=== PATIENT | male | born 1985 | race Caucasian/White ===

== ENCOUNTER 2017-09-09 09:24 | Observation (INO) | payer OTHER ==
[2017-09-09] MEDS ORDERED: NS 1,000 ML IV ONE ×2 (09:49)
[2017-09-09] MEDS ORDERED: ONDANSETRON 4 MG/2 ML VIAL IVP ONE (09:51)
[2017-09-09] MEDS ORDERED: ACETAMINOPHEN 325 MG TAB PO ONE (09:51)
--- NOTE | 2017-09-09 09:51 | EDPHY ---
H & P Time Seen by Provider: 09/09/17 09:34 HPI/ROS: CHIEF COMPLAINT: Fever and sore throat HISTORY OF PRESENT ILLNESS: Patient is HIV positive but had a negative viral load in July and tells me his CD4 count at that time was in the mid 500s. No recent foreign travel and no recent IV drug abuse. No recent dental work. He describes having cough and cold symptoms for 3 weeks with phlegm and sinus pressure. This past weekend on Friday 2 days ago developed sore throat and diffuse myalgias and headaches and pain on swallowing. He went to [facility] today and had a negative strep test and a negative influenza. He presents with sore throat which is moderate and worse with swallowing, worse on the right does not radiate. Duration as above. REVIEW OF SYSTEMS: Eye: no change in vision ENT: HPI Cardiac: no chest pain or syncope Pulmonary: HPI Abdomen: no vomiting, diarrhea, abdominal pain, does have some nausea Musculoskeletal: Diffuse myalgias in all joints neck and back. Skin: no rash Neuro: Mild headache Constitutional: Fever and chills : no urinary symptoms A comprehensive 10 point review of systems is otherwise negative aside from elements mentioned in the history of present illness. PAST MEDICAL HISTORY: HIV as above Social history: No travel out of the country and no IV drug abuse, no recent dental work General Appearance: Alert and conversant, cooperative. Eyes: No scleral icterus. ENT, Mouth: Patient has tonsillar swelling and exudate. Uvula is midline. No stridor or drooling. No trismus. No gum swelling. Normal tympanic membranes. Respiratory: Normal respiratory effort, breath sounds equal, lungs are clear to auscultation. Cardiovascular: Regular rate and rhythm. No murmur. Gastrointestinal: Abdomen is soft and non tender. Neurological: Alert and oriented x3. Normally conversant. Face symmetric, normal movement and sensation in all extremities. Skin: Warm and dry, no rashes. No petechiae or purpura. Musculoskeletal: Full range of motion of the neck, no meningeal signs. Psychiatric: Not agitated. Emergency Department course/MDM: Zofran 4 mg IV. IV normal saline 2 L and oral acetaminophen for fever. Chest x -ray for cough. 1038: Chest x-ray personally interpreted shows no pneumonia. 1052: Discussed with Pujet, Unasyn and Toradol and dexamethasone. At this point I think it is unlikely he has epiglottitis or deep space neck infection or retropharyngeal abscess. Smoking Status: Former smoker Constitutional: Initial Vital Signs Temperature (C) 39.3 C H 09/09/17 09:27 Heart Rate 132 H 09/09/17 09:27 Respiratory Rate 16 09/09/17 09:27 Blood Pressure 114/73 09/09/17 09:27 O2 Sat (%) 97 09/09/17 09:27 Allergies/Adverse Reactions: cefaclor [From Ceclor] Allergy (Verified 09/09/17 12:00) Hives Sulfa (Sulfonamide Antibiotics) Allergy (Verified 09/09/17 12:00) Hives Home Medications: Medication Instructions Recorded Elviteg/Jumana/Emtric/Tenofo Ala 1 each PO DAILY 09/09/17 [Genvoya Tablet] Ibuprofen [Motrin (*)] 400 - 600 mg PO DAILY PRN 09/09/17 Medical Decision Making - Diagnostics Imaging Results: Imaging Impressions Chest X-Ray 09/09/17 09:49 Impression:1. No pneumonia. Suspect airways disease. 2. Doubt pneumopericardium. Dr. Wallace is in agreement. Results discussed with Dr. Jenkins. Differential Diagnosis: Differential includes but not limited to RPA, epiglottitis, tonsillitis, strep, mono, Omer's. Consult/Admit Bed Type: [facility] for [facility] 1111 - Data Points Laboratory Results: Laboratory Results 09/09/17 10:10 09/09/17 10:10 09/09/17 09/09/17 09/09/17 10:10 10:10 10:10 WBC 16.06 10^3/uL H 10^3/uL (3.80-9.50) RBC 4.65 10^6/uL 10^6/uL (4.40-6.38) Hgb 16.1 g/dL g/dL (13.7-17.5) Hct 44.3 % % (40.0-51.0) MCV 95.3 fL fL (81.5-99.8) MCH 34.6 pg H pg (27.9-34.1) MCHC 36.3 g/dL g/dL (32.4-36.7) RDW 11.7 % % (11.5-15.2) Plt Count 191 10^3/uL 10^3/uL (150-400) MPV 10.1 fL fL (8.7-11.7) Neut % (Auto) 86.4 % H % (39.3-74.2) Lymph % (Auto) 6.1 % L % (15.0-45.0) [place] % (Auto) 6.7 % % (4.5-13.0) Eos % (Auto) 0.0 % L % (0.6-7.6) Baso % (Auto) 0.2 % L % (0.3-1.7) Nucleat RBC Rel Count 0.0 % % (0.0-0.2) Absolute Neuts (auto) 13.88 10^3/uL H 10^3/uL (1.70-6.50) Absolute Lymphs (auto) 0.98 10^3/uL L 10^3/uL (1.00-3.00) Absolute Monos (auto) 1.07 10^3/uL H 10^3/uL (0.30-0.80) Absolute Eos (auto) 0.00 10^3/uL L 10^3/uL (0.03-0.40) Absolute Basos (auto) 0.04 10^3/uL 10^3/uL (0.02-0.10) Absolute Nucleated RBC 0.00 10^3/uL 10^3/uL (0-0.01) Immature Gran % 0.6 % % (0.0-1.1) Immature Gran # 0.09 10^3/uL 10^3/uL (0.00-0.10) PT 14.1 SEC SEC (12.0-15.0) INR 1.10 (0.83-1.16) APTT 28.9 SEC SEC (23.0-38.0) VBG Lactic Acid 0.9 mmol/L mmol/L (0.7-2.1) Sodium Potassium Chloride Carbon Dioxide Anion Gap BUN Creatinine Estimated GFR Glucose Calcium Total Bilirubin 09/09/17 10:10 WBC RBC Hgb Hct MCV MCH MCHC RDW Plt Count MPV Neut % (Auto) Lymph % (Auto) [place] % (Auto) Eos % (Auto) Baso % (Auto) Nucleat RBC Rel Count Absolute Neuts (auto) Absolute Lymphs (auto) Absolute Monos (auto) Absolute Eos (auto) Absolute Basos (auto) Absolute Nucleated RBC Immature Gran % Immature Gran # PT INR APTT VBG Lactic Acid Sodium 138 mEq/L mEq/L (134-144) Potassium 4.0 mEq/L mEq/L (3.5-5.2) Chloride 99 mEq/L mEq/L (97-110) Carbon Dioxide 23 mEq/l mEq/l (22-31) Anion Gap 16 mEq/L mEq/L (8-16) BUN 13 mg/dL mg/dL (7-23) Creatinine 0.8 mg/dL mg/dL (0.7-1.3) Estimated GFR > 60 Glucose 103 mg/dL H mg/dL (70-100) Calcium 9.4 mg/dL mg/dL (8.5-10.4) Total Bilirubin 1.1 mg/dL mg/dL (0.1-1.4) Medications Given: Acetaminophen (Tylenol 650/20.3ml Oral Liquid) 650 mg PO Q4HRS PRN PRN Reason: Pain, Mild/Fever, Can Take PO Stop: 03/08/18 12:24 Last Admin: 09/09/17 13:59 Dose: 650 mg Dextrose/Sodium Chloride (D5w 1/2 Ns) 1,000 mls @ 125 mls/hr IV CONT TRINA Stop: 03/08/18 12:29 Last Admin: 09/09/17 13:30 Dose: 1,000 mls Discontinued Medications Acetaminophen (Tylenol) 650 mg PO EDNOW ONE Stop: 09/09/17 09:52 Last Admin: 09/09/17 13:00 Dose: Not Given Dexamethasone (Decadron Injection) 10 mg IVP EDNOW ONE Stop: 09/09/17 10:56 Last Admin: 09/09/17 11:08 Dose: 10 mg Sodium Chloride (Ns) 1,000 mls @ 0 mls/hr IV EDNOW ONE; Wide Open PRN Reason: Protocol Stop: 09/09/17 09:50 Last Admin: 09/09/17 10:55 Dose: 1,000 mls Sodium Chloride (Ns) 1,000 mls @ 0 mls/hr IV EDNOW ONE; Wide Open PRN Reason: Protocol Stop: 09/09/17 09:50 Last Admin: 09/09/17 10:32 Dose: 1,000 mls Ampicillin Sodium/Sulbactam (Sodium 3 gm/ Sodium Chloride) 100 mls @ 200 mls/ hr IV EDNOW ONE PRN Reason: Protocol Stop: 09/09/17 11:17 Last Admin: 09/09/17 11:51 Dose: 100 mls Ketorolac Tromethamine (Toradol) 30 mg IVP EDNOW ONE Stop: 09/09/17 10:46 Last Admin: 09/09/17 10:55 Dose: 30 mg Ondansetron HCl (Zofran) 4 mg IVP EDNOW ONE Stop: 09/09/17 09:52 Last Admin: 09/09/17 10:31 Dose: 4 mg Departure - Departure Disposition: [facility] In[facility] Acute Clinical Impression: Acute pharyngitis Qualifiers: Pharyngitis/tonsillitis etiology: unspecified etiology Qualified Code(s): J02.9 - Acute pharyngitis, unspecified Condition: Good
[2017-09-09 10:22] LABS: PLATELET COUNT 191 10^3/uL (150-400)
[2017-09-09 10:30] LABS: INR 1.1 (0.83-1.16); PROTIME(PATIENT) 14.1 SEC (12.0-15.0)
[2017-09-09] MEDS ORDERED: KETOROLAC 30 MG/1 ML SDV IVP ONE (10:45)
[2017-09-09] MEDS ORDERED: AMPICILLIN/SULBACTAM 3 GM in NS 100 ML IV ONE (10:48)
[2017-09-09] MEDS ORDERED: DEXAMETHASONE 10 MG/ML VIAL IVP ONE (10:55)
[2017-09-09] MEDS ORDERED: HYDROmorphone HCL/NS/PF 0.4 MG/2 ML SYR IVP PRN (12:25)
[2017-09-09] MEDS ORDERED: ONDANSETRON DISINTEGRATING 4 MG TAB PO PRN (12:25)
[2017-09-09] MEDS ORDERED: ACETAMINOPHEN 325 MG TAB PO PRN (12:25)
[2017-09-09] MEDS ORDERED: ONDANSETRON 4 MG/2 ML VIAL IVP PRN (12:25)
--- NOTE | 2017-09-09 13:09 | PCMIDPN ---
Assessment/Plan: 1. Acute pharyngitis accompanied by fevers and body aches: Suspect bacterial etiology such as Group A, C, or G strep. Fusobacterium is also in the differential diagnosis. Patient had mononucleosis as a child. Doubt gonococcal pharyngitis given lack of exposure in the fact that it is usually not present with this severity. Thankfully, patient is much better compared with this morning. Agree that complications such as peritonsillar abscess or other seems less likely at this point in time given clinical exam. I do not feel that he needs a neck CT for additional imaging. Continue Unasyn intravenously 3 g IV q.6 hours, with plans to transition to Augmentin 875 p.o. twice daily to complete 10 days. Hopefully he can go home in the morning if he continues to do well. 2. HIV: Well controlled on Genvoya, which he will continue. Patient is now able to tolerate p.o.'s. This medication needs to be taken with at least a 300 calorie meal, and the patient is aware of this. Subjective: Patient is well known to me. He is under my care for treatment of HIV. Patient 's last laboratories were in July that showed a T-cell count of 532 and a viral load of 30, on Genvoya. He tells me that a everyone at work has been ill , and he developed symptoms consistent with an upper respiratory infection for happy 2-3 weeks ago that have persisted. He started to feel better, but then developed a severe sore throat 2 days ago, with myalgias and tactile fevers. Patient states that he was unable to sleep last night so presented to [facility] urgent care this morning, where a rapid flu swab and strep test were negative. Because the patient had a heart rate in the 130s he was referred to [facility] for further evaluation treatment. In our emergency room, the patient was febrile to 39.3 and tachycardic but nontoxic- appearing. He was given a dose of Unasyn and Decadron and was admitted for further evaluation and treatment based on his vital signs and elevated white blood cell count. Speaking with the patient now, he tells me that he feels markedly better compared to this morning. He is hungry and would like to eat. He just took his antiretrovirals. He denies headache, photophobia, nausea or vomiting. His throat is still quite sore. Mild persistent residual cough, but no shortness of breath and the cough is nonproductive. He does have some body aches. No chest pain no abdominal pain diarrhea rash or other. He does have some swollen neck lymph nodes on the right side. He has not been dysphonic, or had excessive salivation. Objective: Vital Signs Temp Pulse Resp BP Pulse Ox 37.3 C 104 H 18 123/70 H 95 09/09/17 12:31 09/09/17 12:31 09/09/17 12:31 09/09/17 12:31 09/09/17 12:31 09/08/17 09/09/17 09/10/17 05:59 05:59 05:59 Intake Total 2300 Balance 2300 - Physical Exam General Appearance: alert, no apparent distress, thin EENT: other (Minimal posterior or pharyngeal erythema. Some white patches imbedded in his tonsils bilaterally. Tonsils are symmetric and not particularly enlarged. No obvious evidence of peritonsillar abscess. Patient is not hoarse. There is some right-sided anterior cervical lymphadenopathy which is tender. Neck is supple.) Respiratory: lungs clear Cardiac/Chest: regular rate, rhythm, No systolic murmur Abdomen: non-tender, soft Skin: No rash Neuro/Psych: no motor/sensory deficits, oriented x 3 ICD10 Worksheet Patient Problems: Problems Problem Status Onset Acute pharyngitis Acute
[2017-09-09] MEDS: D5W 1/2 NS 1,000 ML IV SCH ×2 (13:30→20:56)
[2017-09-09] MEDS ORDERED: IBUPROFEN 200 MG TAB PO PRN (13:58)
[2017-09-09] MEDS: ACETAMINOPHEN 650 MG/20.3 ML UDCUP PO PRN ×3 (13:59→23:28)
--- NOTE | 2017-09-09 14:45 | GHP ---
[f rep st] HISTORY AND PHYSICAL DATE OF ADMISSION: 09/09/2017 CHIEF COMPLAINT: Throat pain. HISTORY OF PRESENT ILLNESS: The patient is a 31-year-old male who has had cold- like symptoms for the last 3 weeks. He presented today to [facility] with complaints of ongoing fever as well as neck and throat pain for the last 2 days. He said that his throat has had severe soreness for 2 days as well as some malaise and fevers. He states that he was unable to sleep last night and presented to the [facility] this morning. He did have a rapid flu swab there and strep test that were both negative. The patient was sent to the emergency room for further evaluation, given the fact that his tachycardia was in the 130s. He did have a noted fever of 39.3. Upon my examination, the patient's as he feels significantly better. He is able to swallow and able to intake orals. He did receive a dose of Decadron as well as Unasyn in the emergency room. He denies any nausea, vomiting, or diarrhea. He does state that he has a mild persistent cough as well as some generalized body aches. He denies any shortness of breath. He denies any chest pain, or abdominal pain. He has no rashes or lesions. REVIEW OF SYSTEMS: A comprehensive 10-point review of systems is negative, other than noted in the HPI. PAST MEDICAL HISTORY: Notable for HIV. SOCIAL HISTORY: The patient has not had any recent travel. He does not use any IV drugs or alcohol. PHYSICAL EXAM: VITAL SIGNS: Temperature 39.3 with a heart rate of 132, respiratory rate is 16, blood pressure is 114/73, saturating 97% on room air. GENERAL: The patient is alert, conversant, cooperative. HEENT: Normocephalic, atraumatic. There is tonsillar swelling with exudate. There is no stridor or drooling. Uvula is within normal limits. RESPIRATORY: Lungs are clear to auscultation bilaterally. No rhonchi or wheezes noted. CARDIOVASCULAR: Regular rhythm. Tachycardic rate. No murmur or gallop appreciated. GASTROINTESTINAL/ABDOMEN: Bowel sounds are positive. Soft and nontender. GASTROINTESTINAL/ABDOMEN: Bowel sounds are positive. Soft and nontender. There is no guarding or rigidity noted. NEUROLOGICAL: The patient is alert and oriented. He is focally intact. SKIN: Warm and dry. No rashes or lesions appreciated. EXTREMITIES: Within normal limits. There is no clubbing or cyanosis noted. ALLERGIES: Cefaclor as well sulfa. HOME MEDICATIONS: Genvoya. IMAGING: Chest x-ray shows no pneumonia. LABORATORY EVALUATION: White count is 16. ASSESSMENT AND PLAN: The patient is a 31-year-old male presenting to the emergency room with tachycardia and fever. He was evaluated and diagnosed with: 1. Acute pharyngitis with fever and body aches. I have reviewed the patient's care with Dr. Lillian Gonzales, his primary infectious disease provider. We will continue the patient on Unasyn. His symptoms are significantly improving. He did receive a dose of Decadron during the emergency room visit, which will not be continued at this time. He will transition to oral Augmentin 875 mg p.o. b.i.d. to complete a 10-day course if he is continuing to improve and he is able to intake oral and stay hydrated. 2. History of human immunodeficiency virus. He has been continued on his previously prescribed Genvoya. He will continue taking his medication with meals as previously ordered. 3. Disposition: The patient will be admitted to observation status. Anticipate he will be able to discharge from the hospital within 24 hours. We will continue to monitor his laboratory evaluations here as well as supportive care. I have reviewed the patient's care with Dr. Lillian Gonzales who is in agreement with this plan. /[id number]/MODL MTDD
[2017-09-09] MEDS: [UNRECOGNIZED DRUG - OTHER] PO SCH (15:40)
[2017-09-09] MEDS: AMPICILLIN/SULBACTAM 3 GM in NS 100 ML IV SCH ×2 (18:12→23:26)
[2017-09-10] MEDS: AMPICILLIN/SULBACTAM 3 GM in NS 100 ML IV SCH ×4 (05:14→23:15)
[2017-09-10] MEDS: D5W 1/2 NS 1,000 ML IV SCH ×2 (05:16→23:14)
[2017-09-10] MEDS: ACETAMINOPHEN 650 MG/20.3 ML UDCUP PO PRN ×2 (05:23→14:29)
[2017-09-10] MEDS: [UNRECOGNIZED DRUG - OTHER] PO SCH (08:52)
--- NOTE | 2017-09-10 10:58 | ASMTCMCOM ---
CM Note CM Note Notes: Pt admitted with pharyngitis. Anticipate pt will have no DC needs. Date Signed: 09/10/2017 10:57 AM Electronically Signed By:Regine Victoria LCSW
--- NOTE | 2017-09-10 10:58 | ASMTCMCOM ---
CM Note CM Note Notes: Pt admitted with pharyngitis. Anticipate pt will have no DC needs. Date Signed: 09/10/2017 10:57 AM Electronically Signed By:Regine Victoria LCSW
--- NOTE | 2017-09-10 10:58 | ASMTCMCOM ---
CM Note CM Note Notes: Pt admitted with pharyngitis. Anticipate pt will have no DC needs. Date Signed: 09/10/2017 10:57 AM Electronically Signed By:Regine Victoria LCSW
--- NOTE | 2017-09-10 16:38 | HOSPPROG ---
Hospitalist Progress Note Assessment/Plan: 31 yo M with HIV presenting with acute pharyngitis # acute pharyngitis: with throat cultures so far showing mixed tejas, started on unasyn with some improvement but still having pain and difficulty eating. ID has evaluated as well, and recommend unasyn with transition to augmentin. No reason to pursue CT imaging at this time given that he is so stable. No steroids indicated and would prefer to avoid. # HIV: has been stable and continued on current meds # sepsis: 2/2 acute pharyngitis, has been afebrile, vital signs wnl, wbc trending down # dispo: likely dc in am Patient new to my care. Care plan reviewed with ID. Subjective: no significant overnight events, patient feeling a bit better, throat still hurts, still hurts to swallow, no fevers overnight but has been having soaking sweats overnight Objective: Vital Signs Temp Pulse Resp BP Pulse Ox 36.7 C 79 18 115/70 95 09/10/17 15:11 09/10/17 15:11 09/10/17 15:11 09/10/17 15:11 09/10/17 15:11 Microbiology 09/09/17 13:20 Gram Stain - Final Throat - Swab 09/09/17 13:20 Respiratory Panel (PCR) - Final Nasal, Sinus - Swab No Organism Detected Laboratory Results 09/10/17 05:12 09/09/17 09/10/17 09/11/17 05:59 05:59 05:59 Intake Total 6571 Output Total 1650 0 Balance 4921 -205 PT 14.1 SEC (12.0-15.0) 09/09/17 10:10 INR 1.10 (0.83-1.16) 09/09/17 10:10 awake alert nad anicteric, posterior pharynx erythematous without exudate, no stridor op clear rrr no mrg cta b soft nt nd no cce warm dry well perfused oriented appropriate ICD10 Worksheet Patient Problems: Problems Problem Status Onset Acute pharyngitis Acute
[2017-09-11] MEDS: AMPICILLIN/SULBACTAM 3 GM in NS 100 ML IV SCH (05:23)
[2017-09-11 05:30] LABS: PLATELET COUNT 178 10^3/uL (150-400)
[2017-09-11] MEDS: [UNRECOGNIZED DRUG - OTHER] PO SCH (07:35)
[2017-09-11 08:47] VITALS: BP 121/76; PULSE 80; RESP 21; TEMP 98; O2SAT 95
--- NOTE | 2017-09-11 10:28 | PDDCSUM ---
Discharge Summary Discharge Summary: Dates of service 09/09-09/11/17 Consultations: ID Procedures none Hospital course by problem # acute pharyngitis: with throat cultures showing only mixed oral tejas, started on unasyn and significantly improved. Treated with 2 days of unasyn, not given steroids and no CT performed given rapid improvement and lack of issues with swallowing etc. Will complete a total 10 day course with augmentin and have patient f/u as scheduled with ID # HIV: has been stable and continued on current meds # sepsis: 2/2 acute pharyngitis, resolved other than continued elevated wbc Dc home f/u with ID as scheduled, sooner if current sxs fail to completely resolve > 35 min spent in dc of patient, more than half in coordination of care
--- NOTE | 2017-09-11 11:35 | ASDISCHSUM ---
Discharge Information Plan Status:Home with No Needs Medically Cleared to Leave: Discharge Date:09/11/2017 11:23 AM CM D/C Disposition: ADT D/C Disposition:Home, Routine, Self-Care Projected Discharge Date:09/11/2017 11:23 AM Transportation at D/C: Discharge Delay Reason: Follow-Up Date:09/11/2017 11:23 AM Discharge Slot: Final Diagnosis: Placement Information Patient Contact Information Contact Name:SAGE DICKINSON Relationship:Father Address:[address] City:[place] Alternate Phone: [facility]/Zip Code:[place] [address] Email: Financial Information Financial Class:HMO and PPO Plans Primary Plan Desc:[employer] Primary Plan Number:[id number] Secondary Plan Desc: Secondary Plan Number: Assessment Information [facility] CM Progress Note CM Note CM Note Notes: Pt admitted with pharyngitis. Anticipate pt will have no DC needs. Date Signed: 09/10/2017 10:57 AM Electronically Signed By:Regine Victoria LCSW Intervention Information
--- NOTE | 2017-09-11 11:35 | ASDISCHSUM ---
Discharge Information Plan Status:Home with No Needs Medically Cleared to Leave: Discharge Date:09/11/2017 11:23 AM CM D/C Disposition: ADT D/C Disposition:Home, Routine, Self-Care Projected Discharge Date:09/11/2017 11:23 AM Transportation at D/C: Discharge Delay Reason: Follow-Up Date:09/11/2017 11:23 AM Discharge Slot: Final Diagnosis: Placement Information Patient Contact Information Contact Name:SAGE DICKINSON Relationship:Father Address:[address] City:[place] Alternate Phone: [facility]/Zip Code:[place] [address] Email: Financial Information Financial Class:HMO and PPO Plans Primary Plan Desc:[employer] Primary Plan Number:[id number] Secondary Plan Desc: Secondary Plan Number: Assessment Information [facility] CM Progress Note CM Note CM Note Notes: Pt admitted with pharyngitis. Anticipate pt will have no DC needs. Date Signed: 09/10/2017 10:57 AM Electronically Signed By:eRgine Victoria LCSW Intervention Information
--- NOTE | 2017-09-11 11:35 | ASDISCHSUM ---
Discharge Information Plan Status:Home with No Needs Medically Cleared to Leave: Discharge Date:09/11/2017 11:23 AM CM D/C Disposition: ADT D/C Disposition:Home, Routine, Self-Care Projected Discharge Date:09/11/2017 11:23 AM Transportation at D/C: Discharge Delay Reason: Follow-Up Date:09/11/2017 11:23 AM Discharge Slot: Final Diagnosis: Placement Information Patient Contact Information Contact Name:SAGE DICKINSON Relationship:Father Address:[address] City:[place] Alternate Phone: [facility]/Zip Code:[place] [address] Email: Financial Information Financial Class:HMO and PPO Plans Primary Plan Desc:[employer] Primary Plan Number:[id number] Secondary Plan Desc: Secondary Plan Number: Assessment Information [facility] CM Progress Note CM Note CM Note Notes: Pt admitted with pharyngitis. Anticipate pt will have no DC needs. Date Signed: 09/10/2017 10:57 AM Electronically Signed By:Regine Victoria LCSW Intervention Information
== END 2017-09-11 11:23 | disposition home or self-care (01) ==
LOC: F1N 12:24
PROVIDERS: ADMIT Hospitalist; ATTEND Internal Medicine
PROC: 3E0337Z Introduction of Electrolytic and Water Balance Substance into Peripheral Vein, Percutaneous Approach (ICD-10-PCS; principal; 2017-09-09)
PROC: 3E03029 Introduction of Other Anti-infective into Peripheral Vein, Open Approach (ICD-10-PCS; 2017-09-09)
DX: A41.9 Sepsis, unspecified organism (principal); J02.9 Acute pharyngitis, unspecified; Z21 Asymptomatic human immunodeficiency virus [HIV] infection status
CPT/HCPCS: 71020; 96361; 96365; 96375; 99285; G0378; J0295; J1100; J1885; J2405

== ENCOUNTER → 2018-11-17 | Emergency (ER) | payer OTHER | END | disposition left against medical advice (07) | DX: Z53.21 Procedure and treatment not carried out due to patient leaving prior to being seen by health care provider (principal) ==

== ENCOUNTER 2019-01-12 15:02 | Emergency (ER) | payer OTHER ==
[2019-01-12] MEDS ORDERED: IPRATROPIUM/ALBUTEROL 3 ML DEYVIAL ONE (15:28)
[2019-01-12] MEDS ORDERED: IPRATROPIUM/ALBUTEROL 3 ML DEYVIAL IH ONE (15:28)
--- NOTE | 2019-01-12 15:30 | EDPHY ---
H & P Time Seen by Provider: 01/12/19 15:10 HPI/ROS: Chief complaint. Difficulty breathing HPI. Patient is a 33-year-old male HIV positive who presents with cough for 2- 3 weeks. The cough is productive clear sputum especially in the morning. He has some did chest tightness across the front of his chest. For the past 2 days he has had slight shortness of breath in that he feels that he cannot take a full deep breath. However he does not have dyspnea on exertion. He has some runny nose and congestion that he describes as mild. Denies sore throat or sore ears. He has not had a fever. No recent travel with some exposure to Infectious Disease at work. No history of asthma. The patient does not smoke however he vapes. ROS 10 systems were reviewed and negative with the exception of the elements mentioned in the history of present illness Past Medical/Surgical History: HIV positive Social History: Single, nonsmoker, no alcohol Smoking Status: Former smoker Physical Exam: General Appearance: Alert well-developed male mild distress vital signs are stable. Afebrile. O2 saturation 96% on room air Eyes: Pupils equal and round no pallor or injection. ENT, pharynx slightly injected without exudate Respiratory: No retractions. Mild inspiratory expiratory rhonchi. No rales or wheezes are noted Cardiovascular: Regular rate and rhythm. Gastrointestinal: Abdomen is soft and nontender, no masses, bowel sounds normal. Neurological: Awake and alert, sensory and motor exams grossly normal. Skin: Warm and dry, no rashes. Musculoskeletal: Neck is supple nontender. Extremities symmetrical, full range of motion. Psychiatric: Patient is oriented X 3, there is no agitation. Constitutional: Initial Vital Signs Temperature (C) 36.9 C 01/12/19 15:06 Heart Rate 83 01/12/19 15:06 Respiratory Rate 16 01/12/19 15:06 Blood Pressure 129/89 H 01/12/19 15:06 O2 Sat (%) 96 01/12/19 15:06 O2 Delivery Mode Room Air Allergies/Adverse Reactions: cefaclor [From Ceclor] Allergy (Verified 01/12/19 15:12) Pt reports Hives as infant Sulfa (Sulfonamide Antibiotics) Allergy (Verified 01/12/19 15:12) Pt reports Hives as infant Home Medications: Medication Instructions Recorded Albuterol Hfa Anes Only [Proair 2 puffs IH QID PRN #1 mdi 01/12/19 Hfa Icu (*)] Biktarvy 50-200-25 mg Tablet 01/12/19 Medical Decision Making - Diagnostics Imaging Results: Imaging Impressions Chest X-Ray 01/12/19 15:28 Impression: Clear lungs. No pneumonia or acute process. Chest x-ray interpreted by me shows no evidence of pneumonia Procedures: Pre nebulizer peak flow was 400. Patient received DuoNeb updraft. Post peak flow was 425. Expected is 650 ED Course/Re-evaluation: Re-evaluation patient is stable. Patient and I discussed imaging study results. We discussed treatment plan including criteria for return and importance of follow-up and further evaluation. He expresses understanding and agrees I consulted discussed the case with Dr. Moon for Infectious Disease on-call for patient's regular physician Dr. Gonzales. Patient's regular medication bit tar V is apparently not thrombogenic. He agrees with supportive care. Differential Diagnosis: This certainly appears the patient has upper respiratory symptoms. He has cough for 2-3 weeks productive of sputum. He has not had fever. He has no unusual leg pain or swelling. He has stable vital signs. He really has no risk factors for pulmonary embolus. No evidence for pneumonia. Review of patient's old labs showed normal CD4 count and I do not think that this represents opportunistic infection. - Data Points Medications Given: Discontinued Medications Albuterol/Ipratropium (Duoneb) 3 ml IH EDNOW ONE Stop: 01/12/19 15:29 Last Admin: 01/12/19 15:32 Dose: 3 ml Departure - Departure Disposition: Home, Routine, Self-Care Clinical Impression: Upper respiratory infection Qualifiers: URI type: unspecified URI Qualified Code(s): J06.9 - Acute upper respiratory infection, unspecified Condition: Good Instructions: Upper Respiratory Infection (ED) Additional Instructions: Drink plenty of fluids and stay hydrated Albuterol meter dose inhaler using 2 puffs every 4-6 hours over the next 2-3 days to help with breathing Return for worsening difficulty breathing, fever. Recheck by in 2 days if not improved Referrals: Lillian Gonzales MD [Primary Care Provider] - 2-3 days, if not improved Prescriptions: Albuterol Hfa Anes Only [Proair Hfa Icu (*)] 2 puffs IH QID PRN #1 mdi PRN Reason: Short Of Breath/Dyspnea
[2019-01-12 17:15] VITALS: BP 131/80
== END 2019-01-12 17:09 | disposition home or self-care (01) ==
LOC: CED 15:02
DX: J06.9 Acute upper respiratory infection, unspecified (principal); Z21 Asymptomatic human immunodeficiency virus [HIV] infection status; Z87.891 Personal history of nicotine dependence
CPT/HCPCS: 71046-PO; 99283-ER